=== PATIENT | female | born 1990 | race Caucasian/White ===

== ENCOUNTER 2019-07-06 18:18 | Inpatient (IN) | payer OTHER ==
[~2019-07-06] VITALS: Ht 162.6 cm; Wt 100.0 kg
[2019-07-06] MEDS ORDERED: OXYTOCIN 30U/ 0.9% NaCL 500ML 500 ML IV PRN (18:34)
[2019-07-06] MEDS ORDERED: LACTATED RINGERS 1,000 ML IV SCH (18:34)
[2019-07-06] MEDS ORDERED: OXYTOCIN 30U/ 0.9% NaCL 500ML 500 ML IV ONE (18:34)
[2019-07-06] MEDS ORDERED: D5%-LACTATED RINGERS 1,000 ML IV SCH (18:34)
[2019-07-06 18:44] VITALS: BP 127/63
[2019-07-06] MEDS ORDERED: FENTANYL PF 100 MCG/2ML IVPush PRN (19:00)
[2019-07-06] MEDS ORDERED: TERBUTALINE 1 MG/ML, 1ML IVPush PRN (19:00)
[2019-07-06] MEDS ORDERED: ONDANSETRON 2MG/ML, 2ML IVPush PRN (19:00)
[2019-07-06] MEDS ORDERED: FENTANYL PF 100 MCG/2ML IV PRN (19:00)
[2019-07-06] MEDS ORDERED: TERBUTALINE 1 MG/ML, 1ML SQ PRN (19:00)
[2019-07-06] MEDS ORDERED: CALCIUM CARBONATE 500 MG TAB.CHEW PO PRN (19:00)
[2019-07-06] MEDS ORDERED: ALUMINUM/MAG/SIMETHICONE 30 ML UDC PO PRN (19:00)
[2019-07-06] MEDS ORDERED: NEWBORN KIT ONE (19:05)
[2019-07-06] MEDS ORDERED: MISOPROSTOL 25 MCG TABLET ONE ×3 (19:06→20:21)
[2019-07-06 19:12] LABS: BASOPHILS # (AUTO) 0.04 x10^3/uL (0-0.1); BASOPHILS % (AUTO) 0 % (0-1); EOSINOPHILS # (AUTO) 0.07 x10^3/uL (0-0.4); EOSINOPHILS % (AUTO) 1 % (1-7); LYMPHOCYTES # (AUTO) 1.49 x10^3/uL (1-3.4); LYMPHOCYTES % (AUTO) 13 % (22-44); MD NO; MEAN CORPUSCULAR HEMOGLOBIN 30.2 pg (27.0-34.8); MEAN CORPUSCULAR HGB CONC 33.4 g/dL (32.4-35.8); MEAN CORPUSCULAR VOLUME 90.3 fL (80-100); MEAN PLATELET VOLUME 9.2 fL (7.4-10.4); MONOCYTES # (AUTO) 0.58 x10^3/uL (0.2-0.8); MONOCYTES % (AUTO) 5 % (2-9); NEUTROPHILS % (AUTO) 81 % (42-75); PLATELET COUNT 233 x10^3/uL (130-400); RED BLOOD COUNT 4.04 x10^6/uL (3.82-5.3); RED CELL DISTRIBUTION WIDTH 13.7 % (9.6-15.2)
[2019-07-06] MEDS: MISOPROSTOL 25 MCG TABLET PO PRN (20:20)
[2019-07-07] MEDS ORDERED: MISOPROSTOL 25 MCG TABLET ONE ×2 (00:28→00:39)
[2019-07-07] MEDS: MISOPROSTOL 25 MCG TABLET PO PRN (00:40)
[2019-07-07] MEDS ORDERED: OXYTOCIN 30U/ 0.9% NaCL 500ML 500 ML ONE (06:10)
[2019-07-07] MEDS ORDERED: FENTANYL/BUPIV./NS/PF 250 ML EPIDCONT SCH ×2 (10:14→11:03)
[2019-07-07] MEDS ORDERED: LACTATED RINGERS 1,000 ML IV SCH ×2 (10:14→11:03)
[2019-07-07] MEDS ORDERED: LACTATED RINGERS 1,000 ML IVBOLUS PRN ×2 (10:30→11:30)
[2019-07-07] MEDS ORDERED: FENTANYL/BUPIV./NS/PF 250 ML EPIDCONT ONE (10:30)
[2019-07-07] MEDS ORDERED: EPHEDRINE 50 MG/ML, 1ML IVPush PRN ×2 (10:30→11:30)
[2019-07-07] MEDS ORDERED: BUPIVACAINE 0.25% ONE (10:39)
[2019-07-07] MEDS ORDERED: LIDOCAINE/PF 1.5%-EPI 1:200K, 30ML ONE (10:45)
[2019-07-07] MEDS ORDERED: METOCLOPRAMIDE 5 MG/ML, 2ML ONE (18:19)
[2019-07-07] MEDS ORDERED: SODIUM CITRATE/CITRIC ACID 30 ML UDC ONE (18:19)
[2019-07-07] MEDS ORDERED: CEFAZOLIN 1,000 MG ONE (19:15)
[2019-07-07] MEDS ORDERED: ONDANSETRON 2MG/ML, 2ML ONE (19:15)
[2019-07-07] MEDS ORDERED: OXYTOCIN 10 UNITS/ML, 1ML ONE (19:15)
[2019-07-07] MEDS ORDERED: HYDROmorphone 2 MG/ML, 1ML ONE (19:15)
[2019-07-07] MEDS ORDERED: FENTANYL PF 100 MCG/2ML ONE (19:15)
[2019-07-07] MEDS ORDERED: LIDOCAINE-MPF 2% ,5ML ONE ×4 (19:19→19:55)
[2019-07-07] MEDS ORDERED: SODIUM CITRATE/CITRIC ACID 30 ML UDC PO ONE (19:30)
[2019-07-07] MEDS ORDERED: AZITHROMYCIN 500 MG in SODIUM CHLORIDE 0.9% 250 ML IV ONE (19:30)
[2019-07-07] MEDS ORDERED: METOCLOPRAMIDE 5 MG/ML, 2ML IV ONE (19:30)
[2019-07-07] MEDS ORDERED: LACTATED RINGERS 1,000 ML IVBOLUS ONE (19:30)
[2019-07-07] MEDS: LACTATED RINGERS 1,000 ML IV SCH ×2 (19:31→22:20)
[2019-07-07] MEDS ORDERED: OXYcodone IR 5MG TABLET PO PRN ×2 (20:00)
[2019-07-07] MEDS ORDERED: METOCLOPRAMIDE 5 MG/ML, 2ML IV PRN (20:00)
[2019-07-07] MEDS ORDERED: MORPHINE SULFATE 4 MG/ML, 1ML IVPush PRN (20:00)
[2019-07-07] MEDS ORDERED: MISOPROSTOL 200 MCG TABLET SL PRN (20:00)
[2019-07-07] MEDS ORDERED: ONDANSETRON 2MG/ML, 2ML IV PRN (20:00)
[2019-07-07] MEDS ORDERED: ACETAMINOPHEN 325 MG TABLET PO PRN (20:00)
[2019-07-07] MEDS: KETOROLAC 30 MG/1 ML IV SCH (20:00)
[2019-07-07] MEDS ORDERED: DIPH,PERTUSS(ACELL),TET VAC/PF NC IM-VACC PRN (20:00)
[2019-07-07] MEDS ORDERED: CALCIUM CARBONATE 500 MG TAB.CHEW PO PRN (20:00)
[2019-07-07] MEDS ORDERED: SIMETHICONE 80 MG CHEW TAB PO PRN (20:00)
[2019-07-07] MEDS ORDERED: METHYLERGONOVINE 0.2 MG/ML IM PRN (20:00)
[2019-07-07] MEDS ORDERED: KETOROLAC 30 MG/1 ML ONE (20:31)
[2019-07-07] MEDS: DOCUSATE 100 MG CAPSULE PO SCH (21:00)
[2019-07-07] MEDS ORDERED: IBUPROFEN 800 MG TABLET ONE (21:05)
[2019-07-07] MEDS: IBUPROFEN 800 MG TABLET PO PRN (21:07)
[2019-07-07] MEDS ORDERED: OXYcodone 5 MG/5 ML ORAL.SOL UDC PO PRN (21:30)
[2019-07-07] MEDS ORDERED: HYDROmorphone 1 MG/ML, 1ML INJ IVPush PRN (21:30)
[2019-07-07] MEDS ORDERED: ONDANSETRON 2MG/ML, 2ML IVPush PRN (21:30)
[2019-07-07] MEDS ORDERED: FENTANYL PF 100 MCG/2ML IV PRN (21:30)
[2019-07-07] MEDS: OXYTOCIN 30U/ 0.9% NaCL 500ML 500 ML IV SCH (22:20)
[2019-07-07 22:30] VITALS: BP 116/66
[2019-07-08] MEDS: KETOROLAC 30 MG/1 ML IV SCH ×3 (02:14→14:39)
[2019-07-08] MEDS: LACTATED RINGERS 1,000 ML IV SCH ×5 (03:31→19:31)
[2019-07-08 04:17] VITALS: BP 112/64
[2019-07-08 04:39] LABS: MEAN CORPUSCULAR HEMOGLOBIN 30.2 pg (27.0-34.8); MEAN CORPUSCULAR HGB CONC 33.2 g/dL (32.4-35.8); MEAN PLATELET VOLUME 9.5 fL (7.4-10.4); PLATELET COUNT 207 x10^3/uL (130-400); RED BLOOD COUNT 3.33 x10^6/uL (3.82-5.3); RED CELL DISTRIBUTION WIDTH 13.3 % (9.6-15.2)
[2019-07-08] MEDS: OXYTOCIN 30U/ 0.9% NaCL 500ML 500 ML IV SCH ×2 (05:31→15:31)
[2019-07-08 05:47] LABS: BASOPHILS % (AUTO) 0 % (0-1); EOSINOPHILS # (AUTO) 0.03 x10^3/uL (0-0.4); EOSINOPHILS % (AUTO) 0 % (1-7); LYMPHOCYTES % (AUTO) 9 % (22-44); MD SCAN; MONOCYTES # (AUTO) 0.67 x10^3/uL (0.2-0.8); MONOCYTES % (AUTO) 4 % (2-9); NEUTROPHILS % (AUTO) 87 % (42-75)
[2019-07-08] MEDS: PRENATAL VIT/IRON/FA 1 EACH TABLET PO SCH (08:13)
[2019-07-08] MEDS: DOCUSATE 100 MG CAPSULE PO SCH ×2 (08:13→19:50)
[2019-07-08 08:20] VITALS: BP 99/66
[2019-07-08 11:45] VITALS: BP 114/73
[2019-07-08 16:05] VITALS: BP 113/67
[2019-07-08 20:00] VITALS: BP 118/79
[2019-07-08] MEDS ORDERED: KETOROLAC 30 MG/1 ML IVPush ONE (20:00)
[2019-07-09] MEDS: OXYTOCIN 30U/ 0.9% NaCL 500ML 500 ML IV SCH (01:31)
[2019-07-09] MEDS: LACTATED RINGERS 1,000 ML IV SCH ×2 (01:31→03:31)
[2019-07-09] MEDS: IBUPROFEN 800 MG TABLET PO PRN (05:14)
[2019-07-09 07:15] VITALS: BP 108/75
[2019-07-09] MEDS ORDERED: IBUP-1222 PO (08:16)
[2019-07-09] MEDS ORDERED: DOCU-131 PO (08:16)
[2019-07-09] MEDS ORDERED: MEASLES,MUMPS&RUBELLA VACC/PF 0.5 ML SQ-VACC ONE ×2 (09:00→09:03)
[2019-07-09] MEDS: PRENATAL VIT/IRON/FA 1 EACH TABLET PO SCH (10:55)
[2019-07-09] MEDS: DOCUSATE 100 MG CAPSULE PO SCH (10:55)
== END 2019-07-09 12:15 | disposition home or self-care (01) | DRG 787 ==
LOC: LDIP 18:18 → 2NW 07-07 22:22
PROVIDERS: ADMIT Obstetrics & Gynecology; ATTEND Obstetrics & Gynecology
PROC: 10D00Z1 Extraction of Products of Conception, Low, Open Approach (ICD-10-PCS; principal; 2019-07-07)
DX: O62.0 Primary inadequate contractions (principal); O63.9 Long labor, unspecified; O61.9 Failed induction of labor, unspecified; O99.343 Other mental disorders complicating pregnancy, third trimester; F32.9 Major depressive disorder, single episode, unspecified; O99.613 Diseases of the digestive system complicating pregnancy, third trimester; K21.9 Gastro-esophageal reflux disease without esophagitis; Z37.0 Single live birth; Z87.891 Personal history of nicotine dependence; Z91.040 Latex allergy status; Z3A.40 40 weeks gestation of pregnancy
CPT/HCPCS: 36415; J3490; 85025; 86592; 86850; 86900; G0378; J0456; J0690; J1170; J1885; J2405; J3010; J2590; J2765; J7050; J7120